=== PATIENT | male | born 1955 | race Caucasian/White ===

== ENCOUNTER → 2016-04-13 | Outpatient (CLI) | payer BC ==
[~2016-04-13] MED LIST: AC325T PO; ACET-93 PO; AMOX1TAB12 PO; ASPI-345 PO; ESOM20CA PO; IBP200T PO; MULT-955 PO; OMEP10CA2 PO; ROSU5TAB PO
[2016-04-13 17:40] VITALS: BP 118/81
--- NOTE | 2016-04-13 17:40 | Urgent Care T Sheet Gen (E) ---
Intake General Temperature (Fahrenheit): 98.3 Pulse: 75 Blood Pressure Systolic: 118 Blood Pressure Diastolic: 81 Respirations: 20 SPO2: 97 Description of Symptoms Patient presents with a 1 month history of chest congestion and sinus congestion. States the symptoms wax and wane. Today the biggest complaints are chest. Intermittent fevers. Has taken several boxes of OTC meds without lasting relief. History of Present Illness Allergies: Coded Allergies: fluvastatin (Verified Allergy, Intermediate, Myalgia, 01/27/16) metaxalone (Verified Allergy, Intermediate, Hives, 01/27/16) simvastatin (Verified Allergy, Intermediate, Myalgia, 01/27/16) Heparin Analogues (Verified Allergy, Unknown, 01/27/16) clindamycin (Verified Allergy, Unknown, 01/27/16) Home Meds Active Scripts Amoxicillin/Clavulanate Potassium (Augmentin 875mg/125mg)1 Each Tablet1 Tab PO BID #15 TAB Ref 0 Prov:VICKY MUNOZ MD 01/29/16 Ibuprofen 200 Mg [id number] Mg PO Q6H PRN PAIN #0 TAB Ref 0 Prov:VICKY MUNOZ MD 01/29/16 Acetaminophen 325 Mg Aceull097 Mg PO Q6H PRN PAIN #0 TAB Ref 0 Prov:VICKY MUNOZ MD 01/29/16 Reported Medications Multivitamin (Multi-Vitamin Daily)1 Each Tablet1 Tab PO DAILY 01/27/16 Esomeprazole Magnesium (Nexium)20 Mg Capsule.dr20 Mg PO DAILY@0700 01/27/16 Aspirin 81 Mg Tapaym59 Mg PO every other day 01/18/12 Rosuvastatin Calcium (Crestor)5 Mg Tablet2.5 Mg PO HS 01/18/12 Respiratory Constitutional Symptoms: Fever Malaise EENTM: Nose Congestion Respiratory: Cough Cardiovascular: No symptoms reported Gastrointestinal/Abdominal: No symptoms reported All Other Systems Reviewed Remaining Systems: All other systems reviewed with negative findings Past Orsgonc-Jsxneu-Julajo Hx Patient's Social History Alcohol Use: Denies Use Smoking Status: Never smoker Infectious Disease Exposure: No Recent foreign travel: No Surgeries/Hospitalizations Hospitalization/Surgery Hx: PACEMAKER 1987, TONSILS AND ADNOIDS, COLON RESECTION ANDGALLBLADDER, PACEMAKER REPLACED, REMOVED PACEMAKER, BLOOD CLOT X2 TO LUNG, R BICEP MUSCLE REPAIR, stover endectomy Respiratory Respiratory History: Sleep Apnea, None Comment: mild sleep apnea. no treatment Cardiovascular Cardiovascular History: Hypotension, Arrhythmia, Deep Vein Thrombosis, Hypercholesterolemia Comment: SICK SINUS SYNDROME, VAGUS VAGEL Neuro/Muscular Neuro/Muscular History: Arthirits Reproductive System Sexually Transmitted Diseases: No Genitouinary Genitourinary History: None Gastrointestinal GI/Endocrine History: Heartburn, Abdominal pain, Nausea, GERD, Irritable bowel Comment: ESOPHAGEAL STRICTURE, STRECHED Diabetes Diabetes: No HEENT Impaired Vision: Glasses Hearing Impaired: None Integumentary Integumentary History: None Cancer History of Cancer?: No Psychosocial Behavior Disorders: None Blood Transfusions Hx of Blood transfusions: No Physical Exam Physical Exam General Appearance: WD/WN No apparent distress Eyes, Ears, Nose, Throat Ex: TMs normal Pharynx normal Other (nose is clear) Neck Exam: SuppleNo Lymphadenopathy Respiratory Exam: RhonchiNo Wheezes Cardiovascular Exam: Regular rate, rhythm Departure Urgent Care Impression Impression: Primary Impression: Bronchitis Departure Disposition: 01 HOME OR SELF-CARE Condition: Stable Referrals: Garcia Valenzuela MD (PCP) Additional Instructions: I have started the patient on Augmentin for treatment I have also prescribed Robitussin AC 10ml po qhs prn cough #100ml for nighttime use. States his cough keeps him up Rest. Fluids Return as needed Patient understands DC instructions. All questions were answered. Scripts Amoxicillin/Clavulanate Potassium (Augmentin 875mg/125mg)1 Each Tablet1 Tab PO BID #14 TAB Ref 0 Prov:CIARA BURGOS 04/13/16 End of report . CIARA BURGOS Apr 13, 2016 17:40
== END ==
LOC: MHUC 17:24
PROVIDERS: ATTEND Physician Assistant
DX: J40 Bronchitis, not specified as acute or chronic (principal)
CPT/HCPCS: 99213

== ENCOUNTER → 2016-07-11 | Outpatient (CLI) | payer BC | LOC: LAB 16:19 | PROVIDERS: ATTEND Surgery | DX: R19.7 Diarrhea, unspecified (principal); R10.30 Lower abdominal pain, unspecified | CPT/HCPCS: 87507 ==

== ENCOUNTER 2016-07-18 07:49 | Day surgery (SDC) | payer BC ==
[~2016-07-18] VITALS: Ht 177.8 cm; Wt 80.5 kg
[~2016-07-18 07:49] MED LIST changes: +LACTATED RINGERS 1,000 ML IV SCH; +SODIUM CHLORIDE FLUSH 3 ML SYR IV PRN
--- OUTSIDE RECORDS SUMMARY | 2016-07-18 07:52 | XMS REPORT ---
Author Author Baron Khan Organization [facility] Address [address] [place] [address] Care Team Providers Care Foamite Mixer Name Role Phone Baron Khan Unavailable [phone] PROBLEMS Type Condition ICD9-CM Code [id number] Code Onset Dates Condition Status SNOMED Code Problem Long-term use of aspirin therapy Z79.82 Active [id number] Problem Congenital bicuspid aortic valve Q23.9 Active Problem Chest pain R07.9 Active 92212358 Problem Dyslipidemia (high LDL; low HDL) E78.4 Active [id number] ALLERGIES Unknown Allergies SOCIAL HISTORY No smoking Hx information available PLAN OF CARE VITAL SIGNS MEDICATIONS Unknown Medications RESULTS No Results PROCEDURES No Known procedures IMMUNIZATIONS No Known Immunizations
[2016-07-18 07:56] VITALS: BP 113/80
[2016-07-18] MEDS ORDERED: MIDAZOLAM 2 MG/2 ML (VERSED) VIAL ONE (09:14)
[2016-07-18] MEDS ORDERED: PROPOFOL 20 ML IV ONE (09:14)
[2016-07-18] MEDS ORDERED: ALFENTANIL 500 MCG/ML (ALFENTA) 5 ML AMP IV ONE (09:14)
[2016-07-18 10:16] VITALS: BP 99/67
--- NOTE | 2016-07-18 10:58 | OPERATIVE REPORT ---
DATE OF OPERATION: 07/18/2016 PRE-OPERATIVE DIAGNOSIS: Recurrent episodes of colitis and diarrhea POST-OPERATIVE DIAGNOSIS: Minimal sigmoid colitis and proctitis. OPERATIVE PROCEDURE: Total colonoscopy with segmental biopsies. SURGEON: Jairon Crane MD ANESTHESIA: IV conscious sedation, Monitored Anesthesia Services POSITION: Left lateral decubitus FINDINGS: 1. A few scattered diverticula. 2. Otherwise normal exam to terminal ileum except as above. 3. Prep was good. INDICATIONS: This patient presents with prior history of segmental colon resection for nondescript colitis. He has done well, but in the last years has had 4 episodes of recurrent left lower quadrant pain and on CT imaging, evidence to suggest diverticulitis. One episode required hospitalization. The patient also has episodes of diarrhea. Stool GI panel was negative. Colonoscopy with biopsy was proposed to determine if the patient has colitis, versus recurrent diverticulitis. OPERATIVE NOTE: Following satisfactory induction of analgesia a digital rectal exam was performed. This revealed a normal prostate and sphincter tone. No rectal mass was palpable. Next the colonoscope was introduced per rectum and advanced under CO2 insufflation and direct vision to the cecum. There was some tortuosity of the sigmoid colon around the area of the presumed prior anastomosis, but this could be successfully traversed. The cecum was identified by the ileocecal valve, convergence of the teniae, and palpation/transillumination of the right lower quadrant. The terminal ileum was then intubated with the scope for a distance of about 20 cm. The terminal ileum also appeared normal, as did the remainder of the colon with the exception of the above findings. Complaint Inspector photographs were obtained. Biopsies were obtained of each segment of the colon and terminal ileum using cold biopsy forceps and submitted separately to pathology. Good hemostasis was noted at the biopsy sites. The above areas were carefully again inspected as the scope was slowly withdrawn. Retroflexed view of the rectum was normal. Excess insufflated CO2 was evacuated and the scope removed. The patient tolerated the procedure well and transferred to recovery in stable condition. RECOMMENDATIONS: Recommendations will depend on biopsy results.
[2016-07-18 12:56] VITALS: BP 112/76
== END 2016-07-18 13:05 | disposition home or self-care (01) ==
LOC: ASC 07:49
PROVIDERS: ATTEND Surgery
DX: K52.9 Noninfective gastroenteritis and colitis, unspecified (principal); K62.89 Other specified diseases of anus and rectum; K57.30 Diverticulosis of large intestine without perforation or abscess without bleeding; E78.5 Hyperlipidemia, unspecified; Q23.1 Congenital insufficiency of aortic valve; Z86.711 Personal history of pulmonary embolism; Z86.718 Personal history of other venous thrombosis and embolism; K21.9 Gastro-esophageal reflux disease without esophagitis
CPT/HCPCS: 45380; J2250; J7120

== ENCOUNTER → 2016-08-28 | Outpatient (CLI) | payer BC ==
[~2016-08-28] MED LIST changes: -LACTATED RINGERS 1,000 ML IV SCH; -SODIUM CHLORIDE FLUSH 3 ML SYR IV PRN; +diphenhydrAMINE 25 MG (BENADRYL) TABLET ONE
--- NOTE | 2016-08-28 15:15 | Diagnostic Imaging Report ---
INDICATION: Left-sided hearing loss. FINDINGS: High-resolution images through the Chris bones bilaterally. The mastoid air cells are well-aerated bilaterally. The middle ears are well aerated. No air-fluid levels or soft tissue mass is present. The ossicles are normal. Internal auditory canal is patent. The cochlea, vestibule, vestibular aqueducts, and semicircular canal are symmetrical and appear normal. No evidence of otosclerosis. No masses are demonstrated. Internal auditory canal appears normal as does the jugular and carotid foramen. IMPRESSION: Normal bilateral high-resolution images through the Chris bones. Dictated by: Dictated on workstation # [id number]
== END ==
LOC: RAD 12:12
PROVIDERS: ATTEND Otolaryngology Otology & Neurotology
DX: H91.8X2 Other specified hearing loss, left ear (principal)
CPT/HCPCS: 36415; 70481; 82565; 84520; Q9967